=== PATIENT | male | born 1960 | race Caucasian/White ===

== ENCOUNTER 2020-02-20 07:59 | Outpatient (CLI) | payer OTHER ==
--- NOTE | 2020-02-20 10:29 | MRI Report ---
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 COMPARISON: None. FINDINGS: Image quality: Excellent. Bones: The visualized bone marrow demonstrates normal signal on all sequences. The overlying cortex appears intact. No fractures lines or intra-osseous lesions. Soft tissues: The scanned muscles demonstrate normal overall bulk and internal signal. Subcutaneous tissues appear normal as well. No soft tissue masses are present. Mild distal quadriceps tendinopa thy. Infrapatellar subcutaneous edema/fluid. IMPRESSION: Distal quadriceps tendinopathy Femur marrow signal intensity appears within normal limits. No fracture identified Muscle signal intensity within normal limits Reviewed by: Nilo William MD on 02/20/2020 10:28 AM PDT Approved by: Nilo William MD on 02/20/2020 10:28 AM PDT Station ID: [id number]
== END 2020-02-20 08:00 | disposition home or self-care (01) ==
LOC: DI 07:59
PROVIDERS: ATTEND Family Medicine
DX: M67.952 Unspecified disorder of synovium and tendon, left thigh (principal)

== ENCOUNTER 2022-05-13 09:47 | Outpatient (CLI) | payer OTHER ==
[2022-05-13 12:49] LABS: BASOPHILS % (AUTO) 0.2 %; EOSINOPHILS # (AUTO) 0.1 10^3/uL (0.0-0.7); EOSINOPHILS % (AUTO) 1.4 %; HGB - HEMOGLOBIN 14.9 g/dL (14.0-18.0); LYMPHOCYTES # (AUTO) 1.2 10^3/uL (1.5-3.5); LYMPHOCYTES % (AUTO) 29.4 %; MEAN CORPUSCULAR HGB CONC 33.1 g/dL (32.0-36.0); MEAN CORPUSCULAR VOLUME 90.5 fL (80.0-94.0); MEAN PLATELET VOLUME 10.3 fL (7.4-11.4); MONOCYTES # (AUTO) 0.4 10^3/uL (0.0-1.0); MONOCYTES % (AUTO) 8.9 %; NEUTROPHILS # (AUTO) 2.5 10^3/uL (1.5-6.6); NEUTROPHILS % (AUTO) 59.9 %; PLT - PLATELET COUNT 239 10^3/uL (130-450); RED BLOOD COUNT 4.97 10^6/uL (4.70-6.10); RED CELL DISTRIBUTION WIDTH 12.5 % (12.0-15.0); WHITE BLOOD COUNT 4.2 x10^3/uL (4.8-10.8)
[2022-05-13 14:05] LABS: THYROID STIMULATING HORMONE 1.44 uIU/mL (0.34-5.60)
[2022-05-13 15:35] LABS: ALBUMIN 4.2 g/dL (3.2-5.5); ALBUMIN/GLOBULIN RATIO 1.3 (1.0-2.2); ALKALINE PHOSPHATASE 49 IU/L (42-121); ALT ALANINE AMINOTRANSFERASE 19 IU/L (10-60); AST ASPARTATE AMINOTRANSFERASE 16 IU/L (10-42); BILIRUBIN,TOTAL 0.6 mg/dL (0.2-1.0); BUN - BLOOD UREA NITROGEN 25 mg/dL (6-20); CALCIUM 9.7 mg/dL (8.5-10.3); CARBON DIOXIDE - CO2 32 mmol/L (21-32); CHLORIDE 105 mmol/L (101-111); CHOL/HDL RATIO 4.1 (<5.0); CHOLESTEROL 192 mg/dL; CREATININE 0.7 mg/dL (0.6-1.2); GFR - MDRD 114 (>89); GLUCOSE 99 mg/dL (70-100); HDL CHOLESTEROL 47 mg/dL; LDL CHOLESTEROL,CALCULATED 124 mg/dL; LDL/HDL RATIO 2.6 (<3.6); POTASSIUM 4.1 mmol/L (3.5-5.0); SODIUM 143 mmol/L (135-145); TOTAL PROTEIN 7.5 g/dL (6.7-8.2); TRIGLYCERIDES 105 mg/dL; VLDL CHOLESTEROL 21 mg/dL
[2022-05-13 16:34] LABS: ESTIMATED AVERAGE GLUCOSE 120 mg/dL (70-100); HEMOGLOBIN A1c% 5.8 % (4.27-6.07)
== END 2022-05-13 09:48 | disposition home or self-care (01) ==
LOC: LAB.N 09:47
PROVIDERS: ATTEND Family Medicine
DX: Z00.00 Encounter for general adult medical examination without abnormal findings (principal); K40.90 Unilateral inguinal hernia, without obstruction or gangrene, not specified as recurrent; L57.0 Actinic keratosis; E78.5 Hyperlipidemia, unspecified; R73.9 Hyperglycemia, unspecified; E05.90 Thyrotoxicosis, unspecified without thyrotoxic crisis or storm; Z12.5 Encounter for screening for malignant neoplasm of prostate
CPT/HCPCS: 36415; 80053; 80061; 83036; 83721; 84153; 84443; 85025

== ENCOUNTER 2022-09-21 06:24 | Day surgery (SDC) | payer OTHER ==
[~2022-09-21 06:24] MED LIST: CEFAZOLIN 2G/50ML 0.9% NS 2 GM/50 ML BAG IV ONE
[2022-09-21] MEDS ORDERED: LACTATED RINGERS 1,000 ML IV ONE (06:32)
--- NOTE | 2022-09-21 07:13 | ANESTHESIA ---
Pre-Anesthesia VS, & Labs - Diagnosis inguinal hernia left - Procedure open left inguinal hernia repair with mesh Vital Signs: Temp Pulse Resp BP Pulse Ox O2 Flow Rate 36.2 C L 70 16 122/72 98 09/21/22 06:34 09/21/22 06:34 09/21/22 06:34 09/21/22 06:34 09/21/22 06:34 Height: 5 ft 8 in Weight (kg): 67 kg Body Mass Index: 22.4 BMI Classification: Normal - NPO >8 hours Home Medications and Allergies Home Medications: Ambulatory Orders Albuterol Sulf [Ventolin Hfa Inhaler] 1 puffs PO DAILY PRN 09/21/22 Ibuprofen [Ibu-200] 200 mg PO DAILY PRN 09/21/22 Albuterol Sulf [Ventolin Hfa Inhaler] 1 puffs PO DAILY PRN 09/21/22 Ibuprofen [Ibu-200] 200 mg PO DAILY PRN 09/21/22 Allergies/Adverse Reactions: Allergies Allergy/AdvReac Type Severity Reaction Status Date / Time No Known Drug Allergies Allergy Verified 08/19/22 12:44 Anes History & Medical History - Anesthetic History Anesthesia Complications: reports: No previous complications - Medical History Cardiovascular: reports: None Pulmonary: reports: Other (recent flu) Gastrointestinal: reports: None Urinary: reports: None Neuro: reports: None Musculoskeletal: reports: None Endocrine/Autoimmune: reports: None Blood Disorders: reports: None Skin: reports: None Smoking Status: Never smoker Psychosocial: reports: No issues indicated History of Cancer?: No - Surgical History General: reports: Other (exp. lap) Exam General: Alert, Oriented x3, Cooperative, No acute distress Dental: WNL Mouth Openin Fingerbreadth Neck Mobility: Normal Mallampati classification: III Thyromental Distance: 4-6 cm Mental/Cognitive Status: Alert/Oriented X3, Normal for patient Plan Anesthesia Type: General, MAC Consent for Procedure(s) Verified and Reviewed: Yes Code Status: Attempt Resuscitation ASA classification: 1-Healthy patient Is this case an emergency?: No
[2022-09-21] MEDS ORDERED: fentaNYL 100 MCG/2 ML VIAL ONE (07:19)
[2022-09-21] MEDS ORDERED: MIDAZOLAM 2 MG/2 ML VIAL ONE (07:19)
[2022-09-21] MEDS ORDERED: BUPIVACAINE 0.25% PF 30 ML VIAL ONE (07:20)
[2022-09-21] MEDS ORDERED: LIDOCAINE-MPF 1% 30 ML VIAL ONE (07:20)
[2022-09-21] MEDS ORDERED: PROPOFOL 200 MG/20 ML VIAL IVP ONE (07:23)
--- NOTE | 2022-09-21 07:29 | HISTORY & PHYSICAL EXAMINATION ---
Chief Complaint - Chief Complaint Chief Complaint: left groin bulge History of Present Illness - History Obtained From Records Reviewed: yes History obtained from: pt Exam Limitations: none - History of Present Illness HPI Comment/Other: left groin bulge for a couple months. getting worse History - Past Medical History Cardiovascular: reports: None Respiratory: reports: Other (recent flu) Neuro: reports: None Endocrine/Autoimmune: reports: None GI: reports: None : reports: None HEENT: reports: Chronic hearing loss Psych: reports: None Musculoskeletal: reports: None Derm: reports: None MRSA Hx?: No - Past Surgical History General: reports: Other (exp. lap) Meds/Allgy - Home Medications Home Medications: Ambulatory Orders Medication Instructions Recorded Confirmed Albuterol Sulf [Ventolin Hfa 1 puffs PO DAILY PRN 09/21/22 09/21/22 Inhaler] Ibuprofen [Ibu-200] 200 mg PO DAILY PRN 09/21/22 09/21/22 - Allergies Allergies/Adverse Reactions: Allergies Allergy/AdvReac Type Severity Reaction Status Date / Time No Known Drug Allergies Allergy Verified 08/19/22 12:44 Review of Systems - Other Findings Other Findings: 10 pt ros as above otherwise unremarkable Exam - Vital Signs Reviewed Vital Signs: Yes Vital Signs: Vital Signs x48h Temp Pulse Resp BP Pulse Ox 09/21/22 06:34 36.2 C L 70 16 122/72 98 - Physical Exam General Appearance: positive: No acute distress, Alert Eyes Bilateral: positive: PERRL, EOMI ENT: positive: No signs of dehydration Neck: positive: No JVD, Trachea midline Respiratory: positive: No respiratory distress, Breath sounds nml Cardiovascular: positive: Regular rate & rhythm Abdomen: positive: Non-tender, No distention, Other (left inguinal hernia present) Neurologic/Psychiatric: positive: Oriented x3 Conclusion/Plan - Problem List (1) Inguinal hernia of left side without obstruction or gangrene Conclusion/Plan: plan open repair with mesh. parq held and consent obtained
[2022-09-21] MEDS ORDERED: BUPIVACAINE 0.25% PF 30 ML VIAL SUBQ ONE ×2 (08:04)
[2022-09-21] MEDS ORDERED: LIDOCAINE 1% 50 ML MDV SUBQ ONE ×2 (08:04)
[2022-09-21] MEDS ORDERED: LACTATED RINGERS 200 ML IV ONE (08:57)
[2022-09-21] MEDS ORDERED: HYDROcod/ACETAM 5/325 MG TABLET PO PRN (09:00)
--- NOTE | 2022-09-21 09:06 | OPERATIVE REPORT ---
Operative Report - General Procedure Date: 09/21/22 Planned Procedure: open left inguinal hernia repair with mesh Pre-Op Diagnosis: left inguinal hernia Procedure Performed: open left inguinal hernia repair with mesh Post Op Diagnosis: direct inguinal hernia - Other Other Information/Narrative: Patient was properly identified brought to the operating room and placed in supi ne position. Monitored anesthesia care and sedation was given. He was prepped and draped in a sterile fashion and given preoperative antibiotics. Local anesthetic was given throughout the procedure. A 5 cm incision was made in the direction of Rea's lines just cephalad of the pubic tubercle. Dissection proceeded with cutting current cautery. The superficial epigastric vein was identified clamped divided and tied with 3-0 Vicryl. Dissection proceeded down to the aponeurosis. The aponeurosis was opened in the direction of its fibers and extended to the external ring. Cord structures were mobilized and brought up. The nerves were carefully protected and preserved. Cord structures were mobilized and brought up. A large direct hernia was identified. The direct bulge was mobilized away from surrounding structures. It was reduced and floor repaired with a 2-0 silk pursestring suture. There was no indirect inguinal hernia or preperitoneal fat. The base was tied with 2 O vicryl. Polypropylene mesh was cut to size and with tails. The mesh was secured with multiple interrupted 0 Ethibond sutures. She was placed along the pubic tubercle, Santana's ligament area and along the shelving border of Poupart's ligament. Sutures were placed medially along the abdominal wall musculature and internal oblique. The medial tail of the mesh was secured to the shelving border of P oupart's ligament with 3 interrupted 0 ethibond sutures recreating the internal ring of appropriate size. Aponeurosis was closed with a running 2-0 Vicryl suture. Scarpas was closed with interrupted 3-0 Vicryl suture. Buried interrupted subdermal 3-0 Vicryl sutures were then placed. And was closed with a running 4-0 Monocryl subcuticular suture. Dressing was applied. Patient was awakened and brought to recovery in good condition.
[2022-09-21 09:25] VITALS: BP 133/83
--- NOTE | 2022-09-21 11:15 | ANESTHESIA POST OP EVALUATION ---
Anesthesia Post Eval - Post Anesthesia Eval Vitals: Last Vital Signs Temp 36.3 C L 09/21/22 09:24 Pulse 62 09/21/22 09:24 Resp 15 09/21/22 09:24 BP 133/83 H 09/21/22 09:24 Pulse Ox 100 09/21/22 09:24 O2 Flow Rate CV Function Including HR & BP: Stable Pain Control: Satisfactory Nausea & Vomiting: Negative Mental Status: Baseline Respiratory Status: Airway Patent Hydration Status: Satisfactory Anesthesia Complications: None
== END 2022-09-21 06:25 | disposition home or self-care (01) ==
LOC: SDS 06:24
PROVIDERS: ATTEND Surgery
DX: K40.90 Unilateral inguinal hernia, without obstruction or gangrene, not specified as recurrent (principal)
CPT/HCPCS: 49505; C1781; J0690; J7120

== ENCOUNTER 2023-01-18 15:36 | Outpatient (CLI) | payer OTHER ==
--- NOTE | 2023-01-18 17:37 | MRI Report ---
PROCEDURE: FEMUR/THIGH WO - LT INDICATIONS: QUADRICEP TENDON TEAR TECHNIQUE: Noncontrast coronal and sagittal T1 spin echo and STIR; axial T1 spin echo and T2 fast spin echo with fat saturation through the left thigh. COMPARISON: 02/20/2020. FINDINGS: Image quality: Excellent. Bones: There is no marrow edema. No acute fracture or dislocation. Left hip and left knee joint osteo arthritic changes are seen with joint space narrowing and subchondral sclerosis. No evidence of avasc ular necrosis of femoral head. Soft tissues: Mild edema involving rectus femoris muscle is seen in mid to distal thigh. No other mus marcelino or tendon signal abnormality is seen. No full-thickness quadriceps tendon rupture. Tendinosis and low-grade partial-thickness tear involving distal quadriceps tendon at its superior patella insertio n is seen. Nonspecific mild soft tissue edema and fluid along anterior aspect of patella and patella tendon is seen. Patellar tendon is intact. Visualized anterior and posterior cruciate ligaments are w ithin normal limits. IMPRESSION: 1. Suggestion of muscle strain/low-grade partial thickness tear involving rectus femoris muscle. Dist al quadriceps tendinosis and low-grade partial-thickness tear at its superior patella insertion. No f ull-thickness muscle or tendon rupture. Nonspecific soft tissue edema and fluid along anterior aspect of patella and patella tendon, prepatellar bursitis cannot be excluded. 2. No marrow edema. No fracture or dislocation. Left hip and left knee joint osteoarthritis. No evide nce of avascular necrosis of femoral head. Reviewed by: Vince Vargas MD on 01/18/2023 4:36 PM SAULO Approved by: Vince Vargas MD on 01/18/2023 4:36 PM AKNILA Station ID: [id number]
== END 2023-01-18 15:37 | disposition home or self-care (01) ==
LOC: DI 15:36
PROVIDERS: ATTEND Orthopaedic Surgery Foot and Ankle Surgery
DX: S76.112A Strain of left quadriceps muscle, fascia and tendon, initial encounter (principal); R60.0 Localized edema; M16.12 Unilateral primary osteoarthritis, left hip; M17.12 Unilateral primary osteoarthritis, left knee

== ENCOUNTER 2023-02-08 08:00 | Outpatient (CLI) | payer OTHER ==
--- NOTE | 2023-02-08 15:37 | XRAY Report ---
PROCEDURE: Knee 4 View LT INDICATIONS: LEFT KNEE PAIN TECHNIQUE: 4 views of the left knee were acquired. COMPARISON: Left femur MRI 01/18/2023. FINDINGS: Bones: No acute fractures or dislocations. No suspicious bony lesions. Suprapatellar enthesophyte is noted. Mild patella yo. Mild joint space narrowing is seen at the medial femorotibial compartme nt. Soft tissues: No knee joint effusion. No suspicious soft tissue calcifications or masses. Mild prep atellar soft tissue swelling is consistent with the previously seen bursal effusion in this location. IMPRESSION: 1.Mild medial compartment osteoarthrosis. 2.Small prepatellar bursal effusion. Reviewed by: Lauri Hayward MD on 02/08/2023 3:36 PM PDT Approved by: Lauri Hayward MD on 02/08/2023 3:36 PM PDT Station ID: [id number]
== END 2023-02-08 23:59 | disposition home or self-care (01) ==
LOC: DI.WOS 08:00
PROVIDERS: ATTEND Orthopaedic Surgery
DX: M17.12 Unilateral primary osteoarthritis, left knee (principal); M25.462 Effusion, left knee

== ENCOUNTER 2023-02-23 07:37 | Day surgery (SDC) | payer OTHER ==
[~2023-02-23 07:37] MED LIST changes: +ACETAMINOPHEN 500 MG TABLET PO ONE; -CEFAZOLIN 2G/50ML 0.9% NS 2 GM/50 ML BAG IV ONE; +CELECOXIB 100 MG CAPSULE PO ONE; +ceFAZolin 2 GM VIAL ONE
[2023-02-23] MEDS ORDERED: ONDANSETRON 4 MG/2 ML VIAL ONE ×2 (07:51→08:49)
[2023-02-23] MEDS ORDERED: MIDAZOLAM 2 MG/2 ML VIAL ONE (07:51)
[2023-02-23] MEDS ORDERED: PROPOFOL 500 MG/50 ML 500 MG/50 ML VIAL ONE (07:51)
[2023-02-23] MEDS ORDERED: ROPIVACAINE 0.2% PF 10 ML VIAL ONE (07:51)
[2023-02-23] MEDS ORDERED: DEXAMETHASONE 4 MG/ML VIAL ONE ×2 (07:51→08:49)
[2023-02-23] MEDS ORDERED: LIDOCAINE-PF 2% 10 ML AMP SUBQ ONE (07:54)
[2023-02-23] MEDS ORDERED: LACTATED RINGERS 1,000 ML IV ONE ×2 (08:13→10:30)
[2023-02-23] MEDS ORDERED: fentaNYL 100 MCG/2 ML VIAL IVP PRN (09:13)
[2023-02-23] MEDS ORDERED: ePHEDrine 50 MG/ML VIAL IVP PRN (09:13)
[2023-02-23] MEDS ORDERED: NALOXONE 0.4 MG/ML VIAL IVP PRN (09:13)
[2023-02-23] MEDS ORDERED: ATROPINE ABBOJECT 1 MG/10 ML SYRINGE IVP PRN (09:13)
[2023-02-23] MEDS ORDERED: HYDROmorphone 0.5 MG/0.5 ML SYRINGE IVP PRN (09:13)
[2023-02-23] MEDS ORDERED: ONDANSETRON 4 MG/2 ML VIAL IVP PRN ×2 (09:13→10:39)
--- NOTE | 2023-02-23 09:13 | ANESTHESIA ---
Pre-Anesthesia VS, & Labs - Diagnosis L knee quadriceo tendinosis/tendinits - Procedure L knee quadricep tendon repair Vital Signs: Temp Pulse Resp BP Pulse Ox O2 Flow Rate 36.7 C 78 18 132/80 H 99 02/23/23 07:44 02/23/23 07:44 02/23/23 07:44 02/23/23 07:44 02/23/23 07:44 Height: 5 ft 8 in Weight (kg): 69 kg Body Mass Index: 23.1 BMI Classification: Normal - NPO >8 hours Home Medications and Allergies Home Medications: Ambulatory Orders No Known Home Medications 02/17/23 No Known Home Medications 02/17/23 Allergies/Adverse Reactions: Allergies Allergy/AdvReac Type Severity Reaction Status Date / Time No Known Drug Allergies Allergy Verified 08/19/22 12:44 Anes History & Medical History - Anesthetic History Anesthesia Complications: reports: No previous complications Family history of Anesthesia Complications: Denies Family history of Malignant Hyperthermia: Denies - Medical History Cardiovascular: reports: None Pulmonary: reports: None Gastrointestinal: reports: None Urinary: reports: None Neuro: reports: None Musculoskeletal: reports: None Endocrine/Autoimmune: reports: None Blood Disorders: reports: None Skin: reports: None Smoking Status: Never smoker - Surgical History General: reports: Other Exam General: Alert, Oriented x3, Cooperative Dental: WNL Mouth Openin Fingerbreadth Neck Mobility: Normal Mallampati classification: I Thyromental Distance: 4-6 cm Cardiovascular: Regular rate Plan Anesthesia Type: General, Femoral Block Consent for Procedure(s) Verified and Reviewed: Yes Code Status: Attempt Resuscitation ASA classification: 1-Healthy patient Is this case an emergency?: No
[2023-02-23] MEDS ORDERED: fentaNYL 100 MCG/2 ML VIAL ONE (09:55)
[2023-02-23] MEDS ORDERED: VANCOMYCIN 1 GM VIAL MC ONE (09:58)
[2023-02-23] MEDS ORDERED: VANCOMYCIN 1 GM VIAL ONE (10:00)
[2023-02-23] MEDS ORDERED: LACTATED RINGERS 1,000 ML IV SCH (10:00)
--- NOTE | 2023-02-23 10:14 | OPERATIVE REPORT ---
Operative Report - General Procedure Date: 02/23/23 Planned Procedure: Debridement and repair of quadriceps tendon left knee Pre-Op Diagnosis: Quadriceps tendinosis left knee, chronic Procedure Performed: Debridement and repair of quadriceps tendon using 2 Arthrex 4.75 swive lock anchors to left patella, [place] tendon repair Post Op Diagnosis: Same as preoperative diagnosis - Procedure Note Primary Surgeon: Demetrio Luciano MD Secondary Surgeon: Jodie Arguello PAC Anesthesia Provider: Juan Jose Crocker CRNA Anesthesia Technique: General ET tube, Regional block Pathology: tendon debridement sent to pathology Estimated Blood Loss (mL): 5 Indications: This is a relatively hard-working 62-year-old gentleman with chronic activity related pain that is well localized to the distal quadriceps very close to patellar insertion left knee. He has tried conservative treatment. He has work activities that place demands on lower extremity. His exam showed intact quadriceps tendon but localized tenderness to the quadriceps tendon, pain with resisted quadricep strength testing. His routine radiographs are normal. His MRI scan suggested quadriceps tendinosis at the insertion area of the quadriceps left knee. Informed consent was obtained at the office Findings: . There was no gross tear visualized to the quadriceps tendon. There was mild yellow discoloration localized to a portion of the distal quadriceps tendon. Complications: None - Other Other Information/Narrative: After satisfactory anesthesia had been obtained, patient was placed in a supine position on the operative table with a gel bag beneath the left buttock and a pneumatic tourniquet to the proximal left thigh over a stockinette. The left lower extremity was prepped and draped in a sterile manner in the usual fashion. A timeout procedure was performed by the entire operating room team and all were in agreement. The left leg was exsanguinated with a rubber bandage. The pneumatic tourniquet to the left thigh was elevated to 250 mmHg. A longitudinal midline 5 cm incision was made beginning near the superior pole of the patella and extending it proximally. The quadriceps tendon and the superior pole was identified. The quadriceps tendon was divided transversely about a 1 cm proximal to the patella. The tendon edges were sharply debrided. The bone was denuded of soft tissue, lightly decorticated with a [place] iggy. The Arthrex quadriceps tendon repair kit was utilized. A Krakw locking suture was utilized beginning distally and going proximally utilizing 6 throws on each side of the tendon. This provided excellent fixation with the fiber tape suture. The patella was exposed drill holes were made for the 4.75 suture anchors. Good bone purchase was achieved with the 4.75 mm swivelock anchors. The holes had been prepared with a bone tap. The suture tail was taken through the anchor, suture anchor gently impacted and then screwed home with the knee in extension. Both suture anchors were deployed with a single fiber tape suture strand. The #2 suture tails were then used to perform an epitenon repair. Secure fixation was achieved with the quadriceps tendon. The knee can easily be flexed to 80 degrees. The tourniquet was deflated after 62 minutes. Hemostasis was achieved electrocautery. Dilute Betadine was used to irrigate the wound and a gram of vancomycin powder was inserted the subcutaneous tissue was closed with 2-0 strata fix, skin closed with 3-0 Monocryl, Dermabond and a Mepilex dressing. A long-leg fiberglass splint was applied with the knee in extension. Patient received 2 g of Ancef and tolerated the procedure well A physician loan assistant was medically necessary to help with prepping and draping, positioning, protection of vital structures, assistance during the procedure including wound closure, dressing and/or splinting.
[2023-02-23] MEDS ORDERED: oxyCODONE 5 MG TABLET PO PRN (10:39)
[2023-02-23 12:01] VITALS: BP 127/73
--- NOTE | 2023-02-23 13:47 | ANESTHESIA POST OP EVALUATION ---
Anesthesia Post Eval - Post Anesthesia Eval Vitals: Last Vital Signs Temp 37 C 02/23/23 10:51 Pulse 74 02/23/23 12:00 Resp 14 02/23/23 12:00 BP 127/73 02/23/23 12:00 Pulse Ox 98 02/23/23 12:00 O2 Flow Rate CV Function Including HR & BP: Stable Pain Control: Satisfactory Nausea & Vomiting: Negative Mental Status: Baseline Respiratory Status: Airway Patent Hydration Status: Satisfactory Anesthesia Complications: None
[2023-02-23] MEDS ORDERED: ACETAMINOPHEN 500 MG TABLET PO PRN (14:00)
[2023-02-23] MEDS ORDERED: CELECOXIB 100 MG CAPSULE PO PRN (20:00)
== END 2023-02-23 07:38 | disposition home or self-care (01) ==
LOC: SDS 07:37
PROVIDERS: ATTEND Orthopaedic Surgery
PROC: 0LMR0ZZ Reattachment of Left Knee Tendon, Open Approach (ICD-10-PCS; principal; 2023-02-23 08:30)
DX: M76.892 Other specified enthesopathies of left lower limb, excluding foot (principal)
CPT/HCPCS: 27385; A9270; J3370; J7120

== ENCOUNTER 2023-04-02 08:39 | Outpatient (CLI) | payer OTHER ==
--- NOTE | 2023-04-05 09:30 | MRI Report ---
PROCEDURE: KNEE WO - LT INDICATIONS: QUADRICEPS TENDINITIS TECHNIQUE: Noncontrast sagittal PD fast spin echo and T2 fast spin echo with fat saturation, sagittal 3-D gradie nt sequence with fat saturation; coronal T1 spin echo and PD fast spin echo with fat saturation, and axial PD fast spin echo with fat saturation through the knee. COMPARISON: None. FINDINGS: Image quality: Excellent. Menisci: The medial and lateral menisci demonstrate normal morphology and internal signal. The meni scal root ligaments appear intact. Cruciate ligaments: The anterior and posterior cruciate ligaments appear intact. Medial structures: The medial collateral ligament appears intact. The semimembranosus tendon insert ions and meniscocapsular junction appear intact. Visualized portions of the pes anserinus tendons ap pear normal. No abnormal bursal fluid. Lateral structures: The lateral collateral ligament, long and short heads of the biceps femoris tend on appear intact. The popliteus tendon appears normal. Iliotibial band appears normal. Anterior structures: There are postsurgical changes presumably for quadriceps tendon repair. There i s complete rupture of the quadriceps tendon at the patellar attachment. The patellar tendon is intact. Mild patellar tendinitis. Patellar alignment is normal. No femoral tr ochlear dysplasia or ventral trochlear prominence. No edema in the infrapatellar fat pad. Bones and cartilage: Inferior displacement of patella secondary to ruptured quadriceps tendon. Pancr eas was noted within the patella. There is bone marrow edema in patella. No fractures. Mild cartilage fibrillation with preserved cartilage thickness. Joint space: There is [id number] knee joint effusion. There is complex fluid with debris supe rior to the patella. Tiny Lemon's cyst. Normal appearing synovial plicae are incidentally noted. IMPRESSION: 1. Complete rupture of quadriceps tendon with tendon retraction and inferior displacement of patella. 2. [id number] knee joint effusion. There is complex fluid with debris superior to the patella. 3. Mild patellar tendinitis. Reviewed by: Ginna Helms MD on 04/05/2023 9:29 AM PDT Approved by: Ginna Helms MD on 04/05/2023 9:29 AM PDT Station ID: [id number]
== END 2023-04-02 08:40 | disposition home or self-care (01) ==
LOC: DI 08:39
PROVIDERS: ATTEND Orthopaedic Surgery
DX: S76.112A Strain of left quadriceps muscle, fascia and tendon, initial encounter (principal); M25.462 Effusion, left knee; M76.52 Patellar tendinitis, left knee

== ENCOUNTER 2023-04-06 10:39 | Day surgery (SDC) | payer OTHER ==
[2023-04-06] MEDS ORDERED: LACTATED RINGERS 1,000 ML IV ONE ×2 (10:47→16:11)
[2023-04-06] MEDS ORDERED: ceFAZolin 2 GM VIAL ONE (10:49)
[2023-04-06] MEDS ORDERED: CELECOXIB 100 MG CAPSULE PO ONE (11:00)
[2023-04-06] MEDS ORDERED: ATROPINE ABBOJECT 1 MG/10 ML SYRINGE IVP PRN (12:08)
[2023-04-06] MEDS ORDERED: ePHEDrine 50 MG/ML VIAL IVP PRN (12:08)
[2023-04-06] MEDS ORDERED: fentaNYL 100 MCG/2 ML VIAL IVP PRN (12:08)
[2023-04-06] MEDS ORDERED: HYDROmorphone 0.5 MG/0.5 ML SYRINGE IVP PRN (12:08)
[2023-04-06] MEDS ORDERED: NALOXONE 0.4 MG/ML VIAL IVP PRN (12:08)
[2023-04-06] MEDS ORDERED: ONDANSETRON 4 MG/2 ML VIAL IVP PRN ×2 (12:08→16:12)
--- NOTE | 2023-04-06 12:08 | ANESTHESIA ---
Pre-Anesthesia VS, & Labs - Diagnosis L quadriceps tendon rupture - Procedure L quad tendon repair Vital Signs: Temp Pulse Resp BP Pulse Ox O2 Flow Rate 36.0 C L 70 16 144/93 H 99 0 04/06/23 10:56 04/06/23 10:56 04/06/23 10:56 04/06/23 10:56 04/06/23 10:56 04/06/23 10:56 Height: 5 ft 8 in Weight (kg): 70 kg Body Mass Index: 23.4 BMI Classification: Normal - NPO >8 hours - Lab Results Lab results reviewed: Yes Home Medications and Allergies Allergies/Adverse Reactions: Allergies Allergy/AdvReac Type Severity Reaction Status Date / Time No Known Drug Allergies Allergy Verified 08/19/22 12:44 Anes History & Medical History - Anesthetic History Anesthesia Complications: reports: No previous complications Family history of Anesthesia Complications: Denies Family history of Malignant Hyperthermia: Denies - Medical History Cardiovascular: reports: None Pulmonary: reports: None Gastrointestinal: reports: None Urinary: reports: None Neuro: reports: None Musculoskeletal: reports: None Endocrine/Autoimmune: reports: None Blood Disorders: reports: None Skin: reports: None Smoking Status: Never smoker - Surgical History General: reports: Other Exam General: Alert, Oriented x3, Cooperative Dental: WNL Mouth Openin Fingerbreadth Neck Mobility: Normal Mallampati classification: II Thyromental Distance: 4-6 cm Respiratory: Lungs clear Cardiovascular: Regular rate Plan Anesthesia Type: General, Femoral Block Regional Block: Per Surgeon's request for Post Op pain control Consent for Procedure(s) Verified and Reviewed: Yes Code Status: Attempt Resuscitation ASA classification: 1-Healthy patient Is this case an emergency?: No
[2023-04-06] MEDS ORDERED: LACTATED RINGERS 1,000 ML IV SCH (13:00)
[2023-04-06] MEDS ORDERED: fentaNYL 100 MCG/2 ML VIAL ONE (13:56)
[2023-04-06] MEDS ORDERED: VANCOMYCIN 1 GM VIAL MC ONE (14:33)
[2023-04-06] MEDS ORDERED: VANCOMYCIN 1 GM VIAL ONE (14:39)
[2023-04-06] MEDS ORDERED: HYDROGEN PEROXIDE 3% 473 ML BOTTLE TOP ONE (14:51)
--- NOTE | 2023-04-06 15:44 | OPERATIVE REPORT ---
Operative Report - General Procedure Date: 04/06/23 Planned Procedure: Repair of quadriceps tendon rupture left knee Pre-Op Diagnosis: Complete quadriceps tendon rupture left knee Procedure Performed: Repair of quadriceps tendon rupture left knee with #5 and #2 Arthrex FiberWire through patellar bone tunnels Post Op Diagnosis: Same as preoperative diagnosis - Procedure Note Primary Surgeon: Demetrio Luciano MD Secondary Surgeon: Jodie Arguello PAC Anesthesia Provider: Juan Jose Crocker CRNA Anesthesia Technique: General ET tube, Regional block Estimated Blood Loss (mL): 25 Indications: This is a 62-year-old gentleman who had a quadriceps tendon debridement/repair left knee about 6 weeks ago performed here at [facility]. He is not aware of definite reinjury but was noted to have an extensor lag and a quadriceps tendon defect on his most recent postop visit. The quadriceps tendon rupture was evident clinically and documented with MRI scan as well. No other abnormalities were noted on MRI scan other than the quadriceps tendon rupture. He signed informed consent agreeing to repair of quadriceps tendon rupture left knee Findings: There was a quadriceps tendon rupture from patella left knee. There was no sign of infection. There was some hematoma at the rupture site. The suture anchors were in place. The suture had ruptured, Arthrex fiber tape. One of the tapes had just pulled partially from the tendon and another tape was ruptured.The patella was intact. The quadriceps muscle and tendon are still intact Complications: None - Other Other Information/Narrative: The patient was brought to the operating room table, received femoral nerve block and general anesthetic. He is placed in a supine position with a gel bag beneath the left buttock. A pneumatic tourniquet was applied to the proximal left thigh over stockinette. The left lower extremity was prepped and draped in sterile manner in the usual fashion. A timeout procedure was performed by the entire operating room team and all were in agreement. The left leg was exsanguinated with a rubber bandage and the pneumatic tourniquet to the proximal left thigh was elevated to 250 mmHg. The incision was begun midline just below the inferior patella and was extended proximally to connect with the incision above the patella. Full-thickness flaps were develope d. The quadriceps tendon rupture was encountered and it was detached at least 2 to 3 fingerbreadths above the patella. The hematoma was irrigated. The sutures from the quadriceps tendon were all removed. The suture anchors were left in place as they cannot be pulled out and had very secure fixation. There was suture failure present. The wound was thoroughly irrigated using dilute Betadine, dilute hydrogen peroxide and normal saline. The quadriceps tendon was repaired with 4 strands of #5 Arthrex FiberWire. This suture was weaved using a locking stitch from distal to proximal and proximal to distal using 4 strands of suture. A DataFlyte[employer] drill pin was utilized to make 3 drill holes from superior to inferior patella taking the suture through the patellar tunnels. The middle drill hole had 2 suture limbs and each of the suture limbs were tied to the adjacent suture with the knee in full extension. The closure was supplemented with a running #2 FiberWire suture incorporating the medial and lateral retinaculum. The tourniquet was deflated. Wound was thoroughly irrigated. The subcutaneous tissue was closed with 2 oh strata fix, skin with subcuticular 3-0 Monocryl, Dermabond. The knee was splinted in full extension with a fiberglass posterior splint. He received 2 g of Ancef and tolerated the procedure well. A physician election assistant was medically necessary to help with prepping and draping, positioning, protection of vital structures, assistance during the procedure including wound closure, dressing and/or splinting.
[2023-04-06] MEDS ORDERED: CELECOXIB 100 MG CAPSULE PO PRN (16:12)
[2023-04-06] MEDS ORDERED: oxyCODONE 5 MG TABLET PO PRN (16:12)
[2023-04-06] MEDS ORDERED: ACETAMINOPHEN 500 MG TABLET PO PRN (16:12)
--- NOTE | 2023-04-06 18:19 | ANESTHESIA POST OP EVALUATION ---
Anesthesia Post Eval - Post Anesthesia Eval Vitals: Last Vital Signs Temp 36.2 C L 04/06/23 16:41 Pulse 82 04/06/23 17:30 Resp 14 04/06/23 17:30 BP 132/67 H 04/06/23 17:30 Pulse Ox 100 04/06/23 17:30 O2 Flow Rate 0 04/06/23 10:56 CV Function Including HR & BP: Stable Pain Control: Satisfactory Nausea & Vomiting: Negative Mental Status: Baseline Respiratory Status: Airway Patent Hydration Status: Satisfactory Anesthesia Complications: None
[2023-04-06 19:40] VITALS: BP 119/57
== END 2023-04-06 19:48 | disposition home or self-care (01) ==
LOC: SDS 10:39 → MS2 16:46 → SDS 19:48
PROVIDERS: ATTEND Orthopaedic Surgery
DX: M66.28 Spontaneous rupture of extensor tendons, other site (principal)
CPT/HCPCS: 27665; A9270; J3370; J7120

== ENCOUNTER 2024-02-07 07:30 | Outpatient (CLI) | payer OTHER ==
--- NOTE | 2024-02-07 08:47 | XRAY Report ---
PROCEDURE: Knee 4+V LT INDICATIONS: ARTHRITIS,LEFT KNEE TECHNIQUE: 4 views of the knee(s) were acquired. COMPARISON: 02/08/2023 FINDINGS: Bones: No fractures or dislocations. No suspicious bony lesions. Tricompartmental joint space narrowing with associated osteophytosis. Soft tissues: Small knee joint effusion. No suspicious soft tissue calcifications or masses. IMPRESSION: Mild to moderate tricompartmental osteoarthritis. Kellgren-Mahendra scale of osteoarthritis: 2. This has slightly progressed from prior. Reviewed by: Man Arboleda MD on 02/07/2024 8:45 AM PDT Approved by: Man Arboleda MD on 02/07/2024 8:45 AM PDT Station ID: [id number]
== END 2024-02-07 07:31 | disposition home or self-care (01) ==
LOC: DI 07:30
PROVIDERS: ATTEND Orthopaedic Surgery
DX: M17.12 Unilateral primary osteoarthritis, left knee (principal)

== ENCOUNTER 2024-05-01 09:56 | Outpatient (CLI) | payer OTHER ==
--- NOTE | 2024-05-01 11:10 | Sleep Patient Instructions ---
Sleep Center Visit Summary - Patient Visit Information Reason for Visit: Initial consult for evaluation of sleep disordered breathing and other sleep issues. - Patient Instructions Instructions Attached: Sleep Study Home Monitor Additional Instructions: You will be completing a sleep study, either an in-lab polysomnography (PSG) or home sleep study (HST). You will follow-up in the sleep care office after the sleep study is completed to hear the results and talk about therapy, if needed. You will be called by our office staff to schedule this appointment, but you may contact us with any questions. - Clinic Information Contact: [facility] [address] [place] [address] [email or web address] T: [phone]
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
[2024-05-01 11:22] VITALS: BP 141/82; O2SAT 99
== END 2024-05-01 09:57 | disposition home or self-care (01) ==
LOC: SC 09:56
PROVIDERS: ATTEND Nurse Practitioner Family
DX: R06.83 Snoring (principal); R06.81 Apnea, not elsewhere classified; R51.9 Headache, unspecified; G47.8 Other sleep disorders
CPT/HCPCS: 99203; 99212

== ENCOUNTER 2024-05-10 08:22 | Outpatient (CLI) | payer OTHER | END 2024-05-10 08:23 | disposition home or self-care (01) | LOC: SC 08:22 | PROVIDERS: ATTEND Nurse Practitioner Family | DX: G47.33 Obstructive sleep apnea (adult) (pediatric) (principal); R09.02 Hypoxemia; E05.90 Thyrotoxicosis, unspecified without thyrotoxic crisis or storm; R06.83 Snoring; M17.12 Unilateral primary osteoarthritis, left knee; Z12.5 Encounter for screening for malignant neoplasm of prostate; E29.1 Testicular hypofunction | CPT/HCPCS: 36415; 80053; 80061; 83721; 84153; 84403; 84443; 85025; 95806 ==

== ENCOUNTER 2024-05-10 10:02 | Outpatient (CLI) | payer OTHER ==
[2024-05-10 10:33] LABS: BASOPHILS % (AUTO) 0.6 %; EOSINOPHILS # (AUTO) 0.1 10^3/uL (0.0-0.7); EOSINOPHILS % (AUTO) 1.4 %; HCT - HEMATOCRIT 46.8 % (42.0-52.0); HGB - HEMOGLOBIN 14.9 g/dL (14.0-18.0); LYMPHOCYTES # (AUTO) 1.6 10^3/uL (1.5-3.5); LYMPHOCYTES % (AUTO) 30.7 %; MEAN CORPUSCULAR HEMOGLOBIN 28.8 pg (27.0-31.0); MEAN CORPUSCULAR HGB CONC 31.8 g/dL (32.0-36.0); MEAN CORPUSCULAR VOLUME 90.5 fL (80.0-94.0); MEAN PLATELET VOLUME 9.5 fL (7.4-11.4); MONOCYTES # (AUTO) 0.4 10^3/uL (0.0-1.0); MONOCYTES % (AUTO) 8.7 %; NEUTROPHILS % (AUTO) 58.4 %; PLT - PLATELET COUNT 261 10^3/uL (130-450); RED BLOOD COUNT 5.17 10^6/uL (4.70-6.10); RED CELL DISTRIBUTION WIDTH 13.3 % (12.0-15.0); WHITE BLOOD COUNT 5.1 x10^3/uL (4.8-10.8)
[2024-05-10 10:36] LABS: ALBUMIN 4.3 g/dL (3.2-5.5); ALBUMIN/GLOBULIN RATIO 1.4 (1.0-2.2); ALKALINE PHOSPHATASE 51 IU/L (42-121); ALT ALANINE AMINOTRANSFERASE 13 IU/L (10-60); AST ASPARTATE AMINOTRANSFERASE 14 IU/L (10-42); BILIRUBIN,TOTAL 0.5 mg/dL (0.2-1.0); BUN - BLOOD UREA NITROGEN 20 mg/dL (6-20); CALCIUM 9.6 mg/dL (8.5-10.3); CARBON DIOXIDE - CO2 30 mmol/L (21-32); CHLORIDE 103 mmol/L (101-111); CHOLESTEROL 255 mg/dL; CREATININE 0.7 mg/dL (0.6-1.3); GFR - MDRD 114 (>89); GLUCOSE 99 mg/dL (74-104); HDL CHOLESTEROL 51 mg/dL; LDL CHOLESTEROL,CALCULATED 167 mg/dL; LDL/HDL RATIO 3.3 (<3.6); SODIUM 136 mmol/L (135-145); TOTAL PROTEIN 7.3 g/dL (6.4-8.9); TRIGLYCERIDES 186 mg/dL; VLDL CHOLESTEROL 37 mg/dL
[2024-05-10 10:53] LABS: THYROID STIMULATING HORMONE 1.04 uIU/mL (0.34-5.60)
== END 2024-05-10 10:03 | disposition home or self-care (01) ==
LOC: LAB 10:02
PROVIDERS: ATTEND Family Medicine
DX: E05.90 Thyrotoxicosis, unspecified without thyrotoxic crisis or storm (principal); R06.81 Apnea, not elsewhere classified; R06.83 Snoring; M17.12 Unilateral primary osteoarthritis, left knee; Z12.5 Encounter for screening for malignant neoplasm of prostate; E29.1 Testicular hypofunction
CPT/HCPCS: 36415; 80053; 80061; 83721; 84153; 84403; 84443; 85025

== ENCOUNTER 2024-05-25 08:30 | Outpatient (CLI) | payer OTHER ==
--- NOTE | 2024-05-25 09:05 | Sleep Patient Instructions ---
Sleep Center Visit Summary - Patient Visit Information Reason for Visit: Sleep study follow-up - Patient Instructions Instructions Attached: Apnea Sleep Mouthpieces Additional Instructions: You are to start Positional therapy to control your sleep apnea while you think about your options for treatment. You may obtain positional belts or other commercial devices online. You may also use pillows to position yourself on your side or a T shirt with balls sewn into the back to help keep you on your side to sleep. We would like to follow up with you in a month to check effectiveness of therapy. Please call office to schedule a follow up appointment in the sleep care office once you decide how you want to treat your sleep apnea. - Clinic Information Contact: [facility] [address] [place] [address] [email or web address] T: [phone]
--- NOTE | 2024-05-25 09:15 | SLEEP CARE CONSULTATION ---
Information from patient questionnaire entered by Katina Parkinson. I have reviewed and concur with the information entered by Katina Parkinson. This document represents the service I personally performed and the decisions made by , Gissel De Jesus ARNP. History of Present Illness Service Date and Time: 05/25/2024829 Initial Keyser Sleepiness Scale score: 9 (05/01/24) Current Keyser Sleepiness Scale score: 5 (05/25/24) Additional HPI information: SMITH PERLA returns for follow up and results of the recently performed polysomnography. The sleep study done on 05/10/24 showed mild obstructive sleep apnea with an average AHI of 13 and [place] oxygen saturation of 83%. I explained the pathophysiology behind obstructive sleep apnea. We then spent quite a bit of time discussing different treatment options. For mild obstructive sleep apnea, surgery and oral appliance are alternatives to nasal CPAP therapy but in moderate or severe cases, nasal CPAP is the most effective and reliable treatment. Because apnea is primarily in supine position, then positional management therapy could be effective. Methods discussed such as positioning with pillows, using a T-shirt with tennis balls in the back or commercial products that have a pillow format on back to prevent supine sleep. After some discussion, the patient opted to do positional therapy until he decides if he wants to do any other therapy. He was interested in possible oral appliance therapy along with positional therapy to control sleep apnea. He wishes to discuss options with his before he commits. Patient was cautioned about risks of drowsy driving until sleepiness symptoms resolve. Sleep Study - Results Type of Sleep Study: Home sleep study (COMPLETED 05/10/24) Prior sleep studies: No Polysomnography/Home Sleep Study results: Physician Impression: The quality of the study is good. The length of the study is adequate (> 240 minutes). Please also see the tabulated and graphic data. 1. Obstructive Sleep Apnea-Hypopnea (ICD-10 G47.33), mild, with an AHI of 13.0/hr and [place] SaO2 of 83%. During the study, the patient had 88 apneas (88 obstructive, 0 central, 0 mixed) and 8 hypopneas. The longest episode lasted 84.5 seconds. The respiratory events occurred more frequently during supine sleep (supine AHI was 29.7 and non-supine, 6.52). 2. Hypoxemia (ICD-10 R09.02), mild, with the lowest oxygen saturation of 83 % and 4.7 minutes with SaO2 under 90%. Baseline oxygen saturation was normal (Average oxygen saturation was 95%). Allergies and Home Medications Known drug allergies: No Drug allergies reviewed: Yes Home medication list reviewed: Yes (no changes) Allergy and home medication list: Allergies No Known Drug Allergies Allergy (Verified 05/25/24 08:36) Review of Systems Review of systems same as previous: Yes (NO CHANGE) Physical Exam Vital signs obtained and entered by: KATINA Cummins MA Blood Pressure: 153/85 (RIGHT ARM) Cuff size: regular Heart Rate: 71 O2 Saturation: 98 Height: 5 ft 8 in Weight: 163 lb Body Mass Index: 24.7 BMI Classification: Normal Impression and Plan 1. Obstructive Sleep Apnea-Hypopnea Syndrome, mild, with lowest oxygen saturation of 83%. He states that he is not interested in using a CPAP. We discussed other option of positional therapy with or without oral appliance. Since patients apnea is primarily in supine position, patient advised to try positional therapy and agreed with plan. He will let me know if he wants to pursue the oral appliance too. Patient states he will talk to his and let us know if he is only doing positional therapy or if he needs referral for the oral appliance. the follow up will be scheduled once we know direction of therapy. 2. Hypoxemia, mild, with a [place] oxygen saturation of 83% and 4.7 minutes spent under 90%. The baseline oxygen saturation was normal with an average oxygen saturation of 95%. * Positional therapy for now * Avoid supine sleep. * Return in 1-2 months for positional follow up unless he opts for oral appliance and then we will follow up after he has been using the oral applia nce. I will assess response to therapy at that time. Counseling Topics: Sleeping position Follow up with Sleep Care in: as needed Visit Type: In Office Time Spent with Patient (minutes): 23 Provider Statement: I spent 100% of the Face to Face Visit with the patient with greater than 50% spent counseling the patient and coordination of care.
[2024-05-25 09:23] VITALS: BP 153/85; O2SAT 98
== END 2024-05-25 08:31 | disposition home or self-care (01) ==
LOC: SC 08:30
PROVIDERS: ATTEND Nurse Practitioner Family
DX: G47.33 Obstructive sleep apnea (adult) (pediatric) (principal); R09.02 Hypoxemia
CPT/HCPCS: 99212; 99213